=== PATIENT | female | born 1955 | race Caucasian/White ===

== ENCOUNTER → 2024-06-26 13:11 | Outpatient (REF) | payer OTHER, SELFPAY | LOC: WDC 13:11 | PROVIDERS: ATTENDING PHYSICIAN Internal Medicine Hematology & Oncology; FAMILY PHYSICIAN Internal Medicine | DX: C50.919 Malignant neoplasm of unspecified site of unspecified female breast (principal); Z79.811 Long term (current) use of aromatase inhibitors; Z12.31 Encounter for screening mammogram for malignant neoplasm of breast | CPT/HCPCS: 77063; 77067; 77080 ==

== ENCOUNTER 2024-12-09 06:18 | Day surgery (SDC) | payer OTHER, SELFPAY | END 2024-12-09 11:31 | disposition home or self-care (01) | LOC: GI 06:18 | PROVIDERS: ATTENDING PHYSICIAN Internal Medicine Gastroenterology | DX: Z12.11 Encounter for screening for malignant neoplasm of colon (principal); K57.30 Diverticulosis of large intestine without perforation or abscess without bleeding; K64.0 First degree hemorrhoids; D12.4 Benign neoplasm of descending colon; D12.3 Benign neoplasm of transverse colon; D12.2 Benign neoplasm of ascending colon | CPT/HCPCS: 45385; 45380; 88305 ==

== ENCOUNTER → 2025-06-08 11:42 | Outpatient (REF) | payer OTHER, SELFPAY | LOC: REG 11:42 | PROVIDERS: ATTENDING PHYSICIAN Internal Medicine | DX: M25.511 Pain in right shoulder (principal) | CPT/HCPCS: 73030 ==

== ENCOUNTER → 2025-06-29 12:24 | Outpatient (REF) | payer OTHER, SELFPAY | LOC: WDC 12:24 | PROVIDERS: ATTENDING PHYSICIAN Internal Medicine Hematology & Oncology; FAMILY PHYSICIAN Internal Medicine | DX: Z12.31 Encounter for screening mammogram for malignant neoplasm of breast (principal); Z85.3 Personal history of malignant neoplasm of breast; C50.919 Malignant neoplasm of unspecified site of unspecified female breast | CPT/HCPCS: 77063; 77067 ==